=== PATIENT | female | born 1980 | race Caucasian/White ===

== ENCOUNTER 2024-06-19 19:05 | Emergency (ER) | payer BC, SELFPAY ==
--- NOTE | ~2024-06-19 | XR_ITS ---
EXAMINATION: XR foot RT min 3V DATE: 06/19/2024 19:21 INDICATION: Right foot injury and pain. TECHNIQUE: 4 views of right foot were obtained. COMPARISON: None. FINDINGS: Alignment is normal. There is a nondisplaced comminuted fracture of base of fifth metatarsa l. Joint spaces are normal. IMPRESSION: 1. Nondisplaced comminuted fracture of base of fifth metatarsal. Reviewed, dictated and finalized at location A.
[2024-06-19 19:12] VITALS: BP 147/95; PULSE 66; RESP 16; TEMP 36.5; O2SAT 100
--- NOTE | 2024-06-19 19:12 | ED.LOWEXIN ---
HPI - Extremity Injury (Lower) General Chief Complaint: Extremity Injury, Lower Stated Complaint: INJURED R FOOT Time Seen by Provider: 06/19/24 19:12 Source: patient Mode of arrival: ambulatory Limitations: no limitations History of Present Illness HPI Narrative: Trinh is a 44-year-old female patient presenting to the clinic today with complaints of a right foot injury. She reports she was going down 2 steps into the garage this morning when she fell and twisted her foot. Has having pain and swelling to the dorsal lateral foot. Pain is got worse gradually throughout the day Related Data Allergies Allergy/AdvReac Type Severity Reaction Status Date / Time No Known Allergies Allergy Verified 06/19/24 19:25 Review of Systems Review of Systems: Pertinent positives per HPI. Patient denies any fever, chills, rash, headache, visual changes, dizziness, cough, runny nose, sore throat, shortness of breath, chest pain, palpitations, nausea, vomiting, diarrhea, constipation, abdominal pain, or any urinary issues. PMFSH Comments At the time of my signature, I reviewed and agree with the nursing past medical, surgical, social, and family history. There is no relevant family history pertinent to the patient complaint. Exam Narrative: General: Well-developed, well nourished, in no apparent distress Head: Normocephalic, atraumatic. Cardio: Regular rate and rhythm, s1 and s2 normal, no murmur appreciated. Resp: Clear to auscultation bilaterally, no rhonchi, rales, wheezing or rubs. Musculoskeletal: No deformity, swelling and bruising noted to the dorsal lateral foot, tender to palpation over the 4th and 5th metatarsals, pain with plantar and dorsal flexion of the foot, muscle strength strong and equal, peripheral pulse strong, no edema, no cyanosis, normal gait and station Course Course Emergency Course: Portions of this record may have been created with voice recognition software. Level of Care: Express Care Visit Vital Signs Vital signs: Vital Signs Temperature 36.5 C 06/19/24 19:12 Pulse Rate 66 06/19/24 19:12 Respiratory Rate 16 06/19/24 19:12 Blood Pressure 147/95 H 06/19/24 19:12 Pulse Oximetry 100 06/19/24 19:12 Temperature 36.5 C 06/19/24 19:12 Pulse Rate 66 06/19/24 19:12 Respiratory Rate 16 06/19/24 19:12 Blood Pressure 147/95 H 06/19/24 19:12 Pulse Oximetry 100 06/19/24 19:12 Oxygen Delivery Room Air 06/19/24 19:20 Vital signs reviewed MDM - Extremity Injury (Lower) MDM Narrative Medical decision making narrative: At the time of visit patient is resting comfortably on the exam table. Patient appears to be nontoxic. Diagnostics: X-ray of the right foot shows a nondisplaced comminuted fracture of the right 5th metatarsal Plan: I suspect patient has a right 5th metatarsal fracture. Rowdy wrap and postop shoe was given to the patient the clinic today. Will have her follow-up with orthopedic doctor-call tomorrow to schedule appointment. Supportive measures were discussed with the patient and they voiced understanding discharge instructions and agrees to treatment plan. Return precautions reviewed Differential Diagnosis Differential diagnosis: Likely ankle sprain and strain, ankle fracture and other (Foot sprain, foot fracture) Imaging Data Radiologist's impression: ITS Impressions Foot X-Ray 06/19/24 19:21 IMPRESSION: 1. Nondisplaced comminuted fracture of base of fifth metatarsal. Discharge Plan Discharge Clinical Impression: Metatarsal bone fracture Patient Disposition: Home, Self-Care Condition: Stable Instructions: Antibiotic Form, Foot Fracture in Adults (ED) Additional Instructions: X-rays show a closed nondisplaced comminuted fracture of the right 5th metatarsal Rest, ice, elevate, wear rowdy wrap, and postop shoe as directed Tylenol/motrin for pain as discussed. Gradually bear weight No running or sports unti
--- NOTE | 2024-06-19 19:51 | PC.NURSE ---
+PMS POST JENNIE AND POST OP SHOE APPLICATION
== END 2024-06-19 19:46 | disposition home or self-care (01) ==
PROVIDERS: Emergency Provider Nurse Practitioner Family; PCP Physician Assistant
DX: S92.354A Nondisplaced fracture of fifth metatarsal bone, right foot, initial encounter for closed fracture (principal); W10.9XXA Fall (on) (from) unspecified stairs and steps, initial encounter
CPT/HCPCS: 73630; 99214; G0463

== ENCOUNTER 2024-08-29 10:09 | Outpatient (CLI) | payer BC, SELFPAY ==
--- NOTE | ~2024-08-29 | MM_ITS ---
EXAMINATION: MM screening cortney BI w yakov HISTORY: Screening mammogram TECHNIQUE: Craniocaudal and mediolateral oblique 3-D tomosynthesis images were obtained and synthetic 2-D images were generated. CAD analysis was submitted and interpreted. COMPARISON: No prior mammogram is available for comparison at this institution. BREAST PARENCHYMAL COMPOSITION:Dense: The breasts are heterogeneously dense, which may obscure small masses. FINDINGS: No suspicious mass, calcification, or architectural distortion are identified in either pierre ast to suggest malignancy. There has been no suspicious interval change. IMPRESSION: No mammographic evidence of malignancy. Recommend routine screening mammography in one year. BI-RADS Category 1: Negative Reviewed, dictated and finalized at location . AL RECEPTIONIST
== END 2024-08-29 10:10 | disposition home or self-care (01) ==
PROVIDERS: PCP Physician Assistant; Visit Provider Physician Assistant
DX: Z12.31 Encounter for screening mammogram for malignant neoplasm of breast (principal)
CPT/HCPCS: 77063; 77067